=== PATIENT | female | born 1970 | race Caucasian/White ===

== ENCOUNTER 2017-11-27 17:17 | Emergency (ER) | payer BC ==
[2017-11-27 17:54] VITALS: BP 117/70
--- NOTE | 2017-11-27 18:16 | UC ---
UC General HPI - HPI Summary HPI Summary: Patient presents accompanied by her for a 3 day history of headache, head congestion, sinus pressure, throat discomfort, cough and pain in her chest with deep breaths along with feeling short of breath. She also complains of diffuse body aches and yesterday had some diarrhea which has since resolved. She states that she's had a fever up to 100.6. She denies any history of asthma as well as COPD. - History of Current Complaint Chief Complaint: UCRespiratory Stated Complaint: COUGH/CONGESTION Time Seen by Provider: 11/27/17 18:09 Hx Obtained From: Patient, Family/Medical Investigator Hx Last Menstrual Period: 11/11/17 Onset/Duration: Gradual Onset Timing: Constant Pain Intensity: 4 Alleviating: nothing Associated Signs & Symptoms: Positive: Cough, Diarrhea, Fever, Headache, SOB - Allergy/Home Medications Allergies/Adverse Reactions: Allergies Allergy/AdvReac Type Severity Reaction Status Date / Time No Known Allergies Allergy Verified 11/27/17 17:42 Home Medications: Home Medications Benztropine TAB* [Cogentin TAB*] 1 mg PO BID 11/27/17 [History Confirmed ] Biotin 10,000 mcg PO BID 11/27/17 [History Confirmed 11/27/17] Gabapentin CAP(*) [Neurontin 300 CAP(*)] 300 mg PO BID 11/27/17 [History Confirmed 11/27/17] Lurasidone(*) [Latuda] 60 mg PO DAILY 11/27/17 [History Confirmed 11/27/17] clonazePAM TAB(*) [KlonoPIN TAB(*)] 0.5 mg PO BEDTIME 11/27/17 [History Confirmed 11/27/17] lamoTRIgine TAB(*) [LaMICtal TAB(*)] 100 mg PO BID 11/27/17 [History Confirmed 11/27/17] traZODone TAB* [Desyrel TAB*] 100 mg PO BEDTIME 11/27/17 [History Confirmed ] PMH/Surg Hx/FS Hx/Imm Hx Psychological History: Anxiety, Depression - Surgical History Surgical History: None Surgery Procedure, Year, and Place: right shoulder repair. UTERERINE FIBROIDS REMOVAL - Family History Known Family History: Positive: Hypertension - Social History Lives: With Family Alcohol Use: None Substance Use Type: None Smoking Status (MU): Never Smoked Tobacco - Immunization History Most Recent Tetanus Shot: w/in 5 years Vaccination Up to Date: Yes Review of Systems Constitutional: Fever ENT: Sore Throat, Sinus Congestion Respiratory: Shortness Of Breath, Cough Gastrointestinal: Diarrhea Musculoskeletal: Myalgia Neurological: Headache All Other Systems Reviewed And Are Negative: Yes Physical Exam Triage Information Reviewed: Yes Appearance: Well-Appearing Vital Signs: Initial Vital Signs Temp 98.1 F 11/27/17 17:47 Pulse 78 11/27/17 17:47 Resp 16 11/27/17 17:47 BP 117/70 11/27/17 17:47 Pulse Ox 100 11/27/17 17:47 Vital Signs Reviewed: Yes Eyes: Positive: Conjunctiva Clear ENT: Positive: Pharynx normal, Nasal congestion, TMs normal, Uvula midline. Negative: Nasal drainage, Trismus, Muffled voice, Hoarse voice Neck: Positive: Supple, Nontender, No Lymphadenopathy Respiratory: Positive: Lungs clear, No respiratory distress, Decreased breath sounds Cardiovascular: Positive: RRR, No Murmur Abdomen Description: Positive: Nontender, No Organomegaly, Soft Bowel Sounds: Positive: Present Musculoskeletal: Positive: ROM Intact, Other: - No rigidity. 2+ reflexes x 4. negative babinski. Neurological: Positive: Alert Psychological: Positive: Age Appropriate Behavior Skin Exam: Normal Diagnostics - Laboratory Diagnostic Studies Completed/Ordered: RAPID FLU IS NEGATIVE - Radiology No standard instances Xray Interpretation: No Acute Changes - wet read Re-Evaluation - Re-Evaluation First Eval Re-Evaluation Time: 19:25 Change: Unchanged - PT NOTES NO CHANGE WITHNEB TX Course/Dx - Course Course Of Treatment: non toxic. vs unremarkable. NAD on cxr wet read. nothing on exam to suggest bacterial infection. No concern for seratonin syndrom. Given multiple s/s's - body systems, this is Influenza like plus there have been a couple of flu cases in the area. tx is supportive. Need for close f/u and recheck stressed, - Differential Dx - Multi-Symptom Provider Diagnoses: Influenza like illness. Discharge - Sign-Out/Discharge Documenting (check all that apply): Patient Departure All imaging exams completed and their final reports reviewed: No - Discharge Plan Condition: Stable Disposition: HOME Patient Education Materials: Viral Syndrome (ED) Referrals: MATIAS Madera [Medical Doctor] - 5 Days Additional Instructions: GO TO ER FOR ANY WORSENING - Billing Disposition and Condition Condition: STABLE Disposition: Home
[2017-11-27] MEDS ORDERED: Albuterol 2.5 MG/3 ML NEB.SOL* (0.083%) INH ONE (18:18)
--- NOTE | 2017-11-28 06:52 | RAD ---
INDICATION: Cough, fever and shortness of breath. COMPARISON: There are no relevant prior studies available for comparison. TECHNIQUE: Dual-energy PA and lateral views of the chest were obtained. FINDINGS: The heart is within normal limits in size. Mediastinal and hilar contours appear within normal limits. The lungs are clear. No pleural effusion is present. IMPRESSION: NO EVIDENCE FOR ACTIVE CARDIOPULMONARY DISEASE. R0
--- NOTE | 2017-11-28 07:20 | UC ---
- Progress Note Progress Note: Patient Name: IHSAN ASTORGA Medical Record#: [id number] Ordering Physician: Callie LEES Acct.#: [id number] : 1970 Age: 47 Sex: F Location: [facility] Exam Date: 11/27/171817 ADM Status: [facility] ER Order Information: CHEST PA & LAT 2 VWS Accession Number: [id number] CPT: 14835 INDICATION: Cough, fever and shortness of breath. COMPARISON: There are no relevant prior studies available for comparison. TECHNIQUE: Dual-energy PA and lateral views of the chest were obtained. FINDINGS: The heart is within normal limits in size. Mediastinal and hilar contours appear within normal limits. The lungs are clear. No pleural effusion is present. IMPRESSION: NO EVIDENCE FOR ACTIVE CARDIOPULMONARY DISEASE. R0 <Electronically signed by Gary Olmos MD in OV> 11/28/17647 Dictated By: Gary Olmos MD Dictated Date/Time: 11/28/17647 Transcribed Date/Time: 11/28/17647 Copy to: CC:Callie LEES; No Primary Care Phys,NOPCP ; Cecil nAne MD Imaging - [facility] Imaging [facility] [address] [address] ph ([phone]) ph ([phone]) ph ([phone]) This report is only to be considered final once signed by the Provider(s) as displayed in the "<Electronically Signed by >" field (s). Absence of a signature indicates the report is in a draft status and still needs to be finalized. In the event this document was created by someone other than the signing Provider, the individual initiating the document will be listed in the "Entered by:" or "Dictated by:" theodore. 1 of 1 Re-Evaluation - Re-Evaluation First Eval Re-Evaluation Time: 19:25 Change: Unchanged - PT NOTES NO CHANGE WITHNEB TX Discharge - Sign-Out/Discharge Documenting (check all that apply): Post-Discharge Follow Up All imaging exams completed and their final reports reviewed: Yes - Discharge Plan Condition: Stable Disposition: HOME Patient Education Materials: Viral Syndrome (ED) Referrals: MATIAS Madera [Medical Doctor] - 5 Days Additional Instructions: GO TO ER FOR ANY WORSENING - Billing Disposition and Condition Condition: STABLE Disposition: Home
== END 2017-11-27 19:47 | disposition home or self-care (01) ==
LOC: UCCORT 17:17
DX: J11.1 Influenza due to unidentified influenza virus with other respiratory manifestations (principal); F41.9 Anxiety disorder, unspecified; F32.9 Major depressive disorder, single episode, unspecified
CPT/HCPCS: 71046; 99212; G0463

== ENCOUNTER 2019-05-17 13:34 | Emergency (ER) | payer BC ==
[2019-05-17 15:15] VITALS: BP 104/59
--- NOTE | 2019-05-17 15:42 | UC ---
Lower Extremity/Ankle HPI - HPI Summary HPI Summary: 48-year-old female presents for complaints of right foot pain. States 2 days ago she was attempting to get her grandchild out of the car when she slipped and injured her foot. She is unsure of exact mechanism of injury. States the pain has progressively gotten worse over the last 2 days. Was initially able to walk and bear weight with only mild discomfort but reports today she has been able to bear any significant amount of weight. No alleviating factors however has not taken any uzzg-ers-oronnfc analgesics. Denies any numbness or tingling. Patient is also complaining of three-day history of sore throat. Associated with some mild nasal congestion. States she has been caring for several of her grandchildren who've had some mild URI symptoms. Denies fever, chills, ear pain, dysphagia, cough, chest pain, shortness of breath, abdominal pain, nausea, or vomiting. - History of Current Complaint Chief Complaint: UCLowerExtremity Stated Complaint: RIGHT FOOT PAIN Time Seen by Provider: 05/17/19 15:06 Hx Obtained From: Patient Hx Last Menstrual Period: 11/11/17 Pain Intensity: 10 - Allergies/Home Medications Allergies/Adverse Reactions: Allergies Allergy/AdvReac Type Severity Reaction Status Date / Time No Known Allergies Allergy Verified 05/17/19 15:08 Home Medications: Home Medications Gabapentin CAP(*) [Neurontin 300 CAP(*)] 300 mg PO BID 11/27/17 [History Confirmed 05/17/19] clonazePAM TAB(*) [KlonoPIN TAB(*)] 0.5 mg PO BEDTIME 11/27/17 [History Confirmed 05/17/19] lamoTRIgine TAB(*) [LaMICtal TAB(*)] 100 mg PO BID 11/27/17 [History Confirmed 05/17/19] traZODone TAB* [Desyrel TAB*] 100 mg PO BEDTIME 11/27/17 [History Confirmed ] Amoxicillin PO (*) [Amoxicillin 500 MG CAP*] 500 mg PO Q12H #20 cap 05/17/19 [Rx ] Prazosin 1 mg CAP [Minipress 1 mg CAP] 1 - 3 mg PO DAILY 05/17/19 [History Confirmed 05/17/19] PMH/Surg Hx/FS Hx/Imm Hx Cardiovascular History: Hypertension Psychological History: Anxiety, Depression - Surgical History Surgical History: Yes Surgery Procedure, Year, and Place: right shoulder repair. uterine fibroid removal. hysterectomy Apr 2018 - Family History Known Family History: Positive: Hypertension - Social History Occupation: Unemployed Lives: With Family Alcohol Use: None Substance Use Type: None Smoking Status (MU): Never Smoked Tobacco - Immunization History Most Recent Tetanus Shot: w/in 5 years Vaccination Up to Date: Yes Review of Systems All Other Systems Reviewed And Are Negative: Yes Constitutional: Negative: Fever, Chills Skin: Negative: Rash Eyes: Negative: Drainage, Eye Redness ENT: Positive: Sore Throat, Sinus Congestion. Negative: Ear Ache, Nasal Discharge, Sinus Pain/Tenderness Respiratory: Negative: Cough Cardiovascular: Negative: Chest Pain Gastrointestinal: Negative: Abdominal Pain, Vomiting, Diarrhea, Nausea Genitourinary: Positive: Negative Motor: Negative: Weakness Neurovascular: Negative: Decreased Sensation Musculoskeletal: Positive: Other: - See HPI Neurological/Mental Status: Positive: Negative Is Patient Immunocompromised?: No Physical Exam - Summary Physical Exam Summary: GENERAL APPEARANCE: Well developed, well nourished, alert and cooperative, and appears to be in no acute distress. EYES: Conjunctiva clear. No drainage. EARS: External auditory canals and tympanic membranes clear, hearing grossly intact. NOSE: Mild nasal congestion. No nasal discharge. THROAT: Mild pharyngeal erythema. No tonsilar inflammation, swelling, exudate, or lesions. Uvula midline. NECK: Neck supple, non-tender without lymphadenopathy. CARDIAC: Normal S1 and S2. No S3, S4 or murmurs. Rhythm is regular. There is no peripheral edema, cyanosis or pallor. Extremities are warm and well perfused. Capillary refill is less than 2 seconds. Peripheral pulses intact. LUNGS: Clear to auscultation without rales, rhonchi, wheezing or diminished breath sounds. ABDOMEN: Positive bowel sounds. Soft, nondistended, nontender. No guarding or rebound. No masses or hepatosplenomegally. MUSKULOSKELETAL: Normal muscular development. Non-weightbearing. EXTREMITIES: Generalized tenderness of the right foot without gross deformity, eythema, ecchymosis, or edema. Circulation and sensation intact. SKIN: Skin normal color, texture and turgor with no lesions or eruptions. Triage Information Reviewed: Yes Vital Signs: Initial Vital Signs Temp 98.4 F 05/17/19 15:09 Pulse 77 05/17/19 15:09 Resp 18 05/17/19 15:09 BP 104/59 05/17/19 15:09 Pulse Ox 100 05/17/19 15:09 Vital Signs Reviewed: Yes Diagnostics - Radiology No standard instances Radiology Interpretation Completed By: Radiologist Summary of Radiographic Findings: Order Information: FOOT RIGHT 3+ VWS. INDICATION: Right foot pain since injury May 15, 2019. COMPARISON: None. TECHNIQUE: 3 views of the right foot were obtained. FINDINGS: The adequately corticated bones are properly aligned. Joint spaces appear maintained. No fracture, dislocation or focal bony abnormality is seen. IMPRESSION: Normal radiograph of the right foot. Lower Extremity Course/Dx - Course Course Of Treatment: 48-year-old female presents for complaints of right foot pain. States 2 days ago she was attempting to get her grandchild out of the car when she slipped and injured her foot. She is unsure of exact mechanism of injury. States the pain has progressively gotten worse over the last 2 days. Was initially able to walk and bear weight with only mild discomfort but reports today she has been able to bear any significant amount of weight. No alleviating factors however has not taken any bwnc-swj-frwabab analgesics. Denies any numbness or tingling. Patient is also complaining of three-day history of sore throat. Associated with some mild nasal congestion. States she has been caring for several of her grandchildren who've had some mild URI symptoms. Denies fever, chills, ear pain, dysphagia, cough, chest pain, shortness of breath, abdominal pain, nausea, or vomiting. Afebrile. Vital signs stable. Patient had no nasal congestion, mild nasal congestion, normal TMs, mild pharyngeal erythema without tonsillar swelling or exudate, no cervical lymphadenopathy, clear bilateral breath sounds, generalized tenderness over the right foot without gross deformity, erythema, ecchymosis, or edema, circulation and sensation were intact, and remainder of exam was unremarkable. X-ray showed no acute osseous injury. Rapid strep test was positive. Reviewed results with the patient. Recommending conservative treatment for a right foot injury including over-the- counter analgesics and RICE. She was placed in a cam boot by the RN and provided crutches with instructions for modified weightbearing. She is to follow-up with the orthopedic surgeon in 7 days if no improvement. We'll place her on amoxicillin 500 mg twice a day 10 days for a strep pharyngitis as well as symptomatic care. She is to follow-up with her primary care provider in 3-5 days if symptoms are not improving. Anticipatory guidance and warning symptoms are reviewed with the patient. Verbalizes understanding and agrees to plan of care. - Differential Dx/Diagnosis Differential Diagnosis/HQI/PQRI: Contusion, Dislocation, Fracture (Open), Sprain , Other - Pharyngitis, tonsilitis, URI Provider Diagnosis: Right foot injury, Strep pharyngitis Discharge ED - Sign-Out/Discharge Documenting (check all that apply): Patient Departure All imaging exams completed and their final reports reviewed: Yes - Discharge Plan Condition: Stable Disposition: HOME Prescriptions: Amoxicillin PO (*) [Amoxicillin 500 MG CAP*] 500 mg PO Q12H #20 cap Patient Education Materials: Strep Throat (ED), Foot Sprain (ED) Referrals: No Primary Care Phys,NOPCP [Primary Care Provider] - Additional Instructions: The x-ray performed in the clinic today showed no evidence of a fracture. Rest the foot as much as possible. You may walk and bear weight as tolerated. Use the crutches provided to you for support. Wear the walking boot applied in the clinic today until pain-free. Apply ice to the affected area for 15-20 minutes at least 4 times a day to help with the pain and swelling. Elevate the foot to help reduce swelling. Take acetaminophen (Tylenol) or ibuprofen (Advil, Motrin) according to directions as needed for pain. Follow up with orthopedic surgery in 7 days if symptoms do not improve. Seek immediate medical attention if you have severe pain not managed with pain medication, you are unable to walk or bear any weight, develop numbness or tingling in the foot or toes, or have any worsening of symptoms. Your rapid strep test in the clinic today was positive. We will start you on an antibiotic to treat the infection. Start amoxicillin 500 mg 1 capsule twice a day for 10 days. Be sure to complete the entire course even if feeling better. After you have been on antibiotics for 3 days, throw out your toothbrush and replace with a new one to prevent reinfection. Drink plenty of fluids to avoid dehydration especially if you are running any fever. Use salt water gargles several times a day. Take over the counter acetaminophen (Tylenol) or ibuprofen (Advil, Motrin) according to directions as needed for pain or fever. You may also use Chloraseptic spray or Cepacol lonzenges according to directions which contain a numbing medication and can provide some temporary relief from your sore throat. Return here or follow up with your primary care provider in 3-5 days if symptoms do not improve. Seek immediate medical attention in the emergency room if you have fever greater than 100.5 F despite taking acetaminophen or ibuprofen, are unable to swallow or develop drooling, are unable to open your mouth fully, are unable to eat or drink, have pain that is not relieved with over the counter pain medication, have any difficulty breathing, or any worsening of symptoms. - Billing Disposition and Condition Condition: STABLE Disposition: Home
== END 2019-05-17 16:54 | disposition home or self-care (01) ==
LOC: UCCORT 13:34
DX: J02.0 Streptococcal pharyngitis (principal); S99.921A Unspecified injury of right foot, initial encounter; I10 Essential (primary) hypertension; F41.9 Anxiety disorder, unspecified; F32.9 Major depressive disorder, single episode, unspecified; Z79.899 Other long term (current) drug therapy; W01.0XXA Fall on same level from slipping, tripping and stumbling without subsequent striking against object, initial encounter; Y92.9 Unspecified place or not applicable
CPT/HCPCS: 87651; 99213; G0463